=== PATIENT | male | born 1995 | race Caucasian/White ===

== ENCOUNTER 2017-10-19 17:11 | Emergency (ER) | payer SELFPAY ==
[~2017-10-19] VITALS: Ht 180.3 cm; Wt 107.5 kg
[2017-10-19 17:22] VITALS: Ht 180.3 cm; Wt 107.5 kg
[2017-10-19 21:09] VITALS: BP 119/77
== END 2017-10-19 21:09 | disposition home or self-care (01) ==
LOC: ED 17:11
DX: R42 Dizziness and giddiness (principal); R51 Headache
CPT/HCPCS: Q0162

== ENCOUNTER 2018-08-20 07:25 | Emergency (ER) | payer MEDICAID ==
[~2018-08-20] VITALS: Ht 180.3 cm; Wt 109.8 kg
[2018-08-20 07:30] VITALS: Ht 180.3 cm; Wt 109.8 kg
[2018-08-20 08:35] LABS: microscopic required? NO
[2018-08-20 09:07] LABS: UA SPECIFIC GRAVITY 1.025 (1.005-1.035); urine erythrocyte NEGATIVE (NEGATIVE)
[2018-08-20 10:04] VITALS: BP 127/46
== END 2018-08-20 10:04 | disposition home or self-care (01) ==
LOC: ED 07:25
PROVIDERS: Emergency Medicine
DX: M51.36 Other intervertebral disc degeneration, lumbar region (principal); M54.5 Low back pain; E66.9 Obesity, unspecified; F17.210 Nicotine dependence, cigarettes, uncomplicated; Z68.33 Body mass index [BMI] 33.0-33.9, adult; Z71.6 Tobacco abuse counseling
CPT/HCPCS: 99406; J1100; J1885